=== PATIENT | male | born 1965 | race Caucasian/White ===

== ENCOUNTER 2018-11-22 03:23 | Inpatient (IN) | payer MEDICAID ==
[~2018-11-22] VITALS: Ht 172.7 cm; Wt 128.3 kg
--- NOTE | 2018-11-22 03:42 | NUR ---
PT STATED HE STOPPED TAKING MEDS ABOUT 3 WEEKS AGO DUE TO IT MAKING HIM DIZZY, DROWSY AND TIRED. PT STATED WHEN HE LAYS BACK HE GETS SHORT OF BREATH.
--- NOTE | 2018-11-22 04:08 | NUR ---
EKG DONE IN TRIAGE
[2018-11-22 04:25] LABS: BASOPHILS # (AUTO) 0.09 x10^3/uL (0-0.1); BASOPHILS % (AUTO) 1 % (0-1); EOSINOPHILS # (AUTO) 0.16 x10^3/uL (0-0.4); EOSINOPHILS % (AUTO) 2 % (1-7); LYMPHOCYTES % (AUTO) 24 % (22-44); MD NO; MEAN CORPUSCULAR HEMOGLOBIN 31.8 pg (27.5-34.5); MEAN CORPUSCULAR HGB CONC 33.2 g/dL (33.2-36.2); MEAN CORPUSCULAR VOLUME 95.9 fL (81-97); MEAN PLATELET VOLUME 9.1 fL (7.4-10.4); MONOCYTES # (AUTO) 0.89 x10^3/uL (0.2-0.8); MONOCYTES % (AUTO) 10 % (2-9); NEUTROPHILS # (AUTO) 5.37 x10^3/uL (1.8-6.8); NEUTROPHILS % (AUTO) 63 % (42-75); PLATELET COUNT 159 x10^3/uL (130-400); RED BLOOD COUNT 4.82 x10^6/uL (4.38-5.82); RED CELL DISTRIBUTION WIDTH 14.2 % (9.4-14.8)
[2018-11-22 04:36] LABS: ALBUMIN 2.9 g/dL (3.4-5.0); ANION GAP 6 mmol/L (5-15); CALCIUM 8.7 mg/dL (8.5-10.1); CHLORIDE 108 mmol/L (98-107); CREATININE 1.18 mg/dL (0.7-1.3)
[2018-11-22 04:40] LABS: TROPONIN I 0.017 ng/mL (0.000-0.045)
[2018-11-22] MEDS ORDERED: OMNIPAQUE 350 MG/ML, 100ML BOTTLE ONE (05:52)
[2018-11-22 08:35] VITALS: BP 131/89
[2018-11-22] MEDS ORDERED: ONDANSETRON ODT 4 MG PO PRN (09:00)
[2018-11-22] MEDS ORDERED: NITROGLYCERIN 0.4 MG/SPRAY SL PRN (09:00)
[2018-11-22] MEDS ORDERED: NITROGLYCERIN 0.4 MG BOTTLE (25 TABS) SL PRN (09:00)
[2018-11-22] MEDS ORDERED: ACETAMINOPHEN 325 MG TABLET PO PRN (09:00)
[2018-11-22] MEDS ORDERED: DOCUSATE 100 MG CAPSULE PO PRN (09:00)
[2018-11-22] MEDS ORDERED: morphine SULFATE 10 MG/ML, 1ML IVPush PRN (09:00)
[2018-11-22 10:08] LABS: HEMOGLOBIN A1C 6.2 % (4.2-6.3)
[2018-11-22 10:26] LABS: TROPONIN I < 0.015 ng/mL (0.000-0.045)
[2018-11-22 10:32] LABS: THYROID STIMULATING HORMONE 1.26 mIU/L (0.358-3.740)
[2018-11-22] MEDS ORDERED: GLEC1TAB PO (10:33)
[2018-11-22] MEDS: ENOXAPARIN 40 MG/0.4 ML SQ SCH (11:18)
[2018-11-22] MEDS: FUROSEMIDE 40 MG/4 ML IV SCH ×2 (11:18→16:31)
[2018-11-22] MEDS: CETIRIZINE 10 MG TABLET PO SCH (11:18)
[2018-11-22] MEDS: GUAIFENESIN 200 MG TABLET PO SCH ×3 (11:18→21:19)
[2018-11-22] MEDS: SODIUM CHLORIDE NASAL SPRAY 45ML BOTTLE NAS SCH ×2 (11:19→21:19)
[2018-11-22] MEDS: FLUTICASONE NASAL SPRAY 16GM NAS SCH ×2 (11:19→21:19)
[2018-11-22 14:00] VITALS: BP 146/96
[2018-11-22 15:11] LABS: AMPHETAMINE SCREEN, URINE Positive (Negative); BARBITURATE SCREEN, URINE Negative (Negative); BENZODIAZEPINE SCREEN, URINE Negative (Negative); CANNABINOID SCREEN, URINE Negative (Negative); COCAINE SCREEN, URINE Negative (Negative); METHADONE SCREEN, URINE Negative (Negative); OPIATE SCREEN, URINE Negative (Negative)
[2018-11-22 16:44] LABS: TROPONIN I < 0.015 ng/mL (0.000-0.045)
[2018-11-22 19:40] VITALS: BP 147/94
[2018-11-23 02:00] VITALS: BP 154/94
[2018-11-23] MEDS: GUAIFENESIN 200 MG TABLET PO SCH ×4 (05:09→20:59)
[2018-11-23] MEDS: ASPIRIN 325 MG TABLET EC PO SCH (05:09)
[2018-11-23 05:45] LABS: BASOPHILS # (AUTO) 0.04 x10^3/uL (0-0.1); BASOPHILS % (AUTO) 1 % (0-1); EOSINOPHILS # (AUTO) 0.12 x10^3/uL (0-0.4); EOSINOPHILS % (AUTO) 1 % (1-7); LYMPHOCYTES # (AUTO) 1.92 x10^3/uL (1-3.4); LYMPHOCYTES % (AUTO) 20 % (22-44); MD NO; MEAN CORPUSCULAR HEMOGLOBIN 31.6 pg (27.5-34.5); MEAN CORPUSCULAR HGB CONC 32.6 g/dL (33.2-36.2); MEAN CORPUSCULAR VOLUME 96.8 fL (81-97); MEAN PLATELET VOLUME 9.4 fL (7.4-10.4); MONOCYTES # (AUTO) 0.78 x10^3/uL (0.2-0.8); MONOCYTES % (AUTO) 8 % (2-9); NEUTROPHILS % (AUTO) 70 % (42-75); PLATELET COUNT 154 x10^3/uL (130-400); RED BLOOD COUNT 4.97 x10^6/uL (4.38-5.82); RED CELL DISTRIBUTION WIDTH 13.8 % (9.4-14.8)
[2018-11-23 05:54] LABS: CHLORIDE 105 mmol/L (98-107)
[2018-11-23 06:06] LABS: ANION GAP 6 mmol/L (5-15); CALCIUM 9.1 mg/dL (8.5-10.1); CHOL/HDL RATIO 2.8; CHOLESTEROL, TOTAL 166 mg/dL (140-239); CREATININE 0.97 mg/dL (0.7-1.3); HDL CHOL % 36 % (26-37); HDL CHOLESTEROL (DIRECT) 59 mg/dL (40-60); LDL CHOLESTEROL,CALCULATED 91 mg/dL (54-169); LDL/HDL RATIO 1.5 (0.5-3.0); TRIGLYCERIDES 80 mg/dL (50-200); VLDL CHOLESTEROL 16 mg/dL (0-25)
[2018-11-23] MEDS: FUROSEMIDE 40 MG/4 ML IV SCH ×2 (08:25→17:18)
[2018-11-23] MEDS ORDERED: REGADENOSON 0.4 MG/5 ML SYRINGE ONE (08:28)
[2018-11-23] MEDS: SODIUM CHLORIDE NASAL SPRAY 45ML BOTTLE NAS SCH ×2 (09:00→20:59)
[2018-11-23] MEDS: FLUTICASONE NASAL SPRAY 16GM NAS SCH ×2 (09:00→20:59)
[2018-11-23] MEDS: CETIRIZINE 10 MG TABLET PO SCH (09:00)
[2018-11-23] MEDS: ENOXAPARIN 40 MG/0.4 ML SQ SCH (11:37)
[2018-11-23 12:02] VITALS: BP 117/71
[2018-11-23] MEDS: CARVEDILOL 3.125 MG TABLET PO SCH (17:18)
[2018-11-23 21:04] VITALS: BP 136/92
[2018-11-24 02:40] VITALS: BP 146/76
[2018-11-24] MEDS: ASPIRIN 325 MG TABLET EC PO SCH (05:16)
[2018-11-24] MEDS: CARVEDILOL 3.125 MG TABLET PO SCH (05:16)
[2018-11-24] MEDS: GUAIFENESIN 200 MG TABLET PO SCH ×2 (05:16→10:53)
[2018-11-24 05:56] LABS: ANION GAP 5 mmol/L (5-15); CALCIUM 8.6 mg/dL (8.5-10.1); CHLORIDE 102 mmol/L (98-107)
[2018-11-24 05:58] LABS: CREATININE 0.97 mg/dL (0.7-1.3)
[2018-11-24] MEDS: ENOXAPARIN 40 MG/0.4 ML SQ SCH (09:00)
[2018-11-24] MEDS ORDERED: LISINOPRIL 5 MG TABLET PO SCH (09:00)
[2018-11-24 09:18] VITALS: BP 120/82
[2018-11-24] MEDS: FUROSEMIDE 40 MG/4 ML IV SCH (09:19)
[2018-11-24] MEDS: FLUTICASONE NASAL SPRAY 16GM NAS SCH (09:19)
[2018-11-24] MEDS: CETIRIZINE 10 MG TABLET PO SCH (09:19)
[2018-11-24] MEDS: SODIUM CHLORIDE NASAL SPRAY 45ML BOTTLE NAS SCH (09:20)
[2018-11-24] MEDS ORDERED: CARV6.2512 PO (10:52)
[2018-11-24] MEDS ORDERED: LISI5TAB7 PO (10:52)
[2018-11-24] MEDS ORDERED: FURO-93 PO (10:52)
[2018-11-24] MEDS ORDERED: ASPI-515 PO (10:54)
[2018-11-24] MEDS ORDERED: POTA10TA11 PO (10:55)
[2018-11-24] MEDS ORDERED: GLECAPREVIR PO SCH (14:00)
[2018-11-24] MEDS ORDERED: PIBRENTASVIR PO SCH (14:00)
[2018-11-24] MEDS ORDERED: CARVEDILOL 6.25 MG TABLET PO SCH (18:00)
== END 2018-11-24 11:55 | disposition home or self-care (01) | DRG 292 ==
LOC: ED 04:59 → EDIP 05:20 → 5SO 06:30 → DCLOUNGE 11-24 11:42
PROVIDERS: ADMIT Family Medicine; ATTEND Family Medicine
DX: I50.21 Acute systolic (congestive) heart failure (principal); Z68.41 Body mass index [BMI] 40.0-44.9, adult; I47.2 Ventricular tachycardia; J98.11 Atelectasis; I42.7 Cardiomyopathy due to drug and external agent; B19.20 Unspecified viral hepatitis C without hepatic coma; E66.01 Morbid (severe) obesity due to excess calories; F17.210 Nicotine dependence, cigarettes, uncomplicated; G47.33 Obstructive sleep apnea (adult) (pediatric); I27.20 Pulmonary hypertension, unspecified; J30.9 Allergic rhinitis, unspecified; K21.9 Gastro-esophageal reflux disease without esophagitis; Z91.19 Patient's noncompliance with other medical treatment and regimen; T50.905A Adverse effect of unspecified drugs, medicaments and biological substances, initial encounter; Y92.89 Other specified places as the place of occurrence of the external cause; I08.1 Rheumatic disorders of both mitral and tricuspid valves
CPT/HCPCS: 36415; 71045; 71275; 78452; 80048; 80061; 80307; 82040; 83036; 83735; 83880; 84443; 84484; 85025; 85379; 93005; 93017; 93970; 99285; C8929; G0378; J1650; J1940; J2785; Q9957; Q9967; A9502

== ENCOUNTER 2018-12-01 10:10 | Emergency (ER) | payer MEDICAID ==
[~2018-12-01] VITALS: Ht 172.7 cm; Wt 130.5 kg
[2018-12-01 11:47] VITALS: BP 113/81
== END 2018-12-01 12:43 | disposition home or self-care (01) ==
LOC: ED 11:37
DX: R07.89 Other chest pain (principal); I11.0 Hypertensive heart disease with heart failure; I50.9 Heart failure, unspecified; R06.02 Shortness of breath
CPT/HCPCS: 36415; 71045; 80048; 82040; 83605; 83880; 84484; 85025; 93005; 99284